=== PATIENT | female | born 1995 | race Caucasian/White ===

== ENCOUNTER 2017-08-05 01:46 | Emergency (ER) | payer MEDICAID, OTHER ==
[~2017-08-05] VITALS: Ht 167.6 cm; Wt 61.4 kg
[2017-08-05] MEDS ORDERED: CETI-290 PO (01:54)
[2017-08-05] MEDS ORDERED: ALBU8HFA IH (01:54)
[2017-08-05] MEDS ORDERED: 0.9% SODIUM CHLORIDE 5 ML NEB SOLUTION NEB ONE (01:56)
[2017-08-05] MEDS ORDERED: ALBUTEROL SULFATE 2.5 MG/0.5 ML NEB SOLUTION NEB ONE (02:00)
[2017-08-05 02:45] VITALS: BP 133/86
== END 2017-08-05 03:00 | disposition home or self-care (01) ==
LOC: EMS 01:48
DX: J45.901 Unspecified asthma with (acute) exacerbation (principal); Z88.6 Allergy status to analgesic agent
CPT/HCPCS: 94640; 99283; J7613